=== PATIENT | male | born 1960 | race African-American/Black ===

== ENCOUNTER 2017-02-20 13:47 | Emergency (ER) | payer SELFPAY ==
[2017-02-20 14:36] VITALS: BP 122/92
--- NOTE | 2017-02-20 14:36 | Emergency Department Report ---
Chief Complaint: Nosebleed Stated Complaint: CONGESTION / NASAL MASS CANCER Time Seen by Provider: 02/20/17 14:28 - HPI History of Present Illness: PT c/o nasal congestion x 1 month. PT was seen on 01-12-17 and dx with sinus cancer/ mass. PT Was given RX for medrol dose pack and Augmentin. PT states his symptoms are getting worse. PT has had CT head, MRI and biopsy - ROS Review of Systems: + nasal congestion + trouble breathing - Exam Physical Exam: nasal congestion noted MSE screening note: Focused history and physical exam performed. Due to findings the following was ordered: ED Disposition for MSE Condition: Stable
[2017-02-20] MEDS ORDERED: TYLENOL ONE (15:39)
[2017-02-20] MEDS ORDERED: TYLENOL PO ONE (15:40)
--- NOTE | 2017-02-21 15:11 | ED Elopement Review ---
ED Pt Elopement review - Call Back decision Pt Call Back Decision: Pt to F/U with PMD
== END 2017-02-21 00:15 | disposition left against medical advice (07) ==
LOC: ED 13:47
DX: R09.81 Nasal congestion (principal); Z53.21 Procedure and treatment not carried out due to patient leaving prior to being seen by health care provider